=== PATIENT | male | born 1995 | race African-American/Black ===

== ENCOUNTER 2021-04-03 11:54 | Emergency (ER) | payer SELFPAY ==
[~2021-04-03] VITALS: Ht 180.3 cm; Wt 65.9 kg
[2021-04-03 12:28] VITALS: BP 144/95; Ht 180.3 cm; Wt 65.9 kg
== END 2021-04-03 13:01 | disposition home or self-care (01) ==
LOC: D.ER 11:54
DX: N28.89 Other specified disorders of kidney and ureter (principal); Z20.2 Contact with and (suspected) exposure to infections with a predominantly sexual mode of transmission